=== PATIENT | female | born 1990 | race Caucasian/White ===

== ENCOUNTER → 2022-04-12 | Outpatient (CLI) | payer BC ==
[~2022-04-12] MED LIST: CATHETER FLUSH 10 ML SYR IV PRN; HOLD METFORMIN - RECEIVED CONTRAST 20 ML VIAL IV SCH; IOHEXOL 350 MG/ML 100 ML (OMNIPAQUE 350) VIAL IV ONE; NS 100 ML (IVPB) BAG IV ONE
--- NOTE | 2022-04-12 14:33 | Diagnostic Imaging Report ---
PROCEDURE: CT angiography of the chest with contrast. TECHNIQUE: Multiple contiguous axial images were obtained through the chest after uneventful bolus administration of intravenous contrast. 3D reconstructed CTA MIP acquisitions were also performed. Auto Exposure Controls were utilized during the CT exam to meet ALARA standards for radiation dose reduction. INDICATION: Chest pain x 1 month duration. FINDINGS: The pulmonary arterial branch is patent and well opacified with no filling defect. No PE. The thoracic aorta is patent, nonaneurysmal, and nonacute. There is no mediastinal or pericardial hemorrhage or effusion. The pleura is unremarkable. No edema or pneumonia. No lung mass. No thoracic adenopathy. No acute or suspect chest wall abnormality. The visualized upper abdomen is nonacute. IMPRESSION: Unremarkable CT angio chest. Dictated by: Dictated on workstation # [id number]
== END ==
LOC: RAD 12:45
PROVIDERS: ATTEND Internal Medicine Cardiovascular Disease
DX: R06.09 Other forms of dyspnea (principal); R07.9 Chest pain, unspecified
CPT/HCPCS: 71275